=== PATIENT | female | born 1995 | race Hispanic/Latino ===

== ENCOUNTER 2016-04-25 15:12 | Emergency (ER) | payer OTHER ==
[~2016-04-25] VITALS: Ht 170.2 cm; Wt 81.8 kg
[2016-04-25 15:17] VITALS: BP 152/68; PULSE 107; RESP 18; O2SAT 100
--- NOTE | 2016-04-25 16:28 | ED.REPORT ---
HPI-Psychiatric Illness Date of Service Apr 25, 2016 ED Provider: Akira Grewal MD Pt is a 20 year old female presenting to the ED accompanied by her friend complaining of suicidal ideation. Pt states that she has been going through a lot of stuff in the past few months, and she has been trying to control her emotions and not react, but now it has negatively affected her. She reports that today, she kept fidgeting, like she couldn't control herself, felt like she couldn't think clearly, felt like her heart was going to "pop out of her chest", was getting uncharacteristically angry, and didn't want to be around people, and insomnia, only getting about 3 hours of sleep per night. She reports a mild history of depression symptoms, and states that she shut herself in her room this past weekend. She does admit to suicidal ideation, but does not have a plan. Nursing Notes Stated Complaint: DEPRESSED Chief Complaint: Psychiatric Complaint Nursing Notes Reviewed: Yes (Postling, CSIDs not reconciled) Allergies: Uncoded Allergies: PENICILLIN (Allergy, Unknown, 04/25/16) General Time Seen by MD: 16:26 Chief Complaint Depressed, Suicidal ideation Hx Obtained From: Patient Arrived By: Walk-in Onset Occurred: Onset unknown Symptom Duration: Since onset Progression Since Onset: Constant Severity: Current: No pain currently Severity: Maximum: No pain Recent Healthcare: No recent doctor visit, No recent hospitalization Similar Sx Previous: No Risk-Psychiatric Illness Suicide Risk Stratification Suicide Risk Factors - Adult: No: Alcohol use, Close associate suicide, Family Hx of Suicide, Previous attempt, Prior psych admission, Substance abuse RF Statements: Risk factors reviewed (not predictive) Past Medical History Past Medical History healthy Past Surgical History denies Smoking History Never Smoker Social History Alcohol Use: Denies alcohol use Ambulatory Status Independent Review of Systems Psychiatric: Reports: Depression, Insomnia, Suicidal ideation, Unable to control self Complete sys rev & neg: except as marked. Physical Exam Initial Vital Signs Vital Signs (First) Date Time Temp Pulse Resp B/P Pulse Ox O2 Delivery O2 Flow Rate FiO2 04/25/16 15:17 36.3 107 18 152/68 100 Room Air Initial VS: Reviewed, Vital signs abnormal Head / Eyes: Atraumatic, Normocephalic, PERRL ENT: Mucous membranes moist, Conjunctiva normal, No scleral icterus Respiratory: Breath sounds normal, Clear to auscultation, No respiratory distress Cardiovascular: Regular rate & rhythm, Heart sounds normal, Intact distal pulses Abdomen / GI: Soft, Non-tender, No guarding, No rebound, No distention Extremities: Vascular intact, Neuro intact, No swelling, No tenderness Skin: Warm, Dry, No cyanosis General/Constitutional: Awake, Alert, Well appearing Neurologic: Oriented X3, Speech NL, No motor deficits, No sensory deficits, Memory NL Psychiatric: Affect NL, Mood NL, Judgment/insight NL Abnormal Thinking / Perception: Positive: Suicidal, no plan Suicidal ideation intermittent, not currently suicidal at present. No clinical signs of intoxication or withdrawal. Interpretation & Diagnostics Lab Results Interpretation Result Diagram: 04/25/16 1640 04/25/16 1640 Test 04/25/16 15:40 04/25/16 16:40 Hold Urine Received (Received) White Blood Count 9.0th/mm3 (3.8-10.1) Red Blood Count 4.67mil/mm3 (3.90-5.20) Hemoglobin 14.1g/dL (12.0-15.6) Hematocrit 41.3% (35.0-46.0) Mean Corpuscular Volume 88.4fL (81-100) Mean Corpuscular Hemoglobin 30.2pg (27.0-35.0) Mean Corpuscular Hemoglobin Concent 34.1% (32.0-37.0) Red Cell Distribution Width 12.3% (12.3-15.4) Platelet Count 259bil/L (150-400) Neutrophils (%) (Auto) 78.1% (40-74) Lymphocytes (%) (Auto) 14.3% (14-46) Monocytes (%) (Auto) 6.1% (4-12) Eosinophils (%) (Auto) 1.0% (0-5) Basophils (%) (Auto) 0.3% (0-3) Sodium Level 137mEq/L (134-144) Potassium Level 4.0mEq/L (3.5-5.2) Chloride Level 99mEq/L (97-108) Carbon Dioxide Level 25mmol/L (18-29) Blood Urea Nitrogen 10mg/dL (6-20) Creatinine 0.61mg/dL (0.57-1.00) Estimat Glomerular Filtration Rate 181mL/min (>59) Glucose Level 99mg/dL (60-99) Calcium Level 8.8mg/dL (8.5-10.1) Total Bilirubin 0.2mg/dL (0.0-1.2) Aspartate Amino Transf (AST/SGOT) 21U/L (0-50) Alanine Aminotransferase (ALT/SGPT) 23U/L (0-32) Alkaline Phosphatase 66U/L (25-150) Total Protein 7.1g/dL (6.4-8.4) Albumin 4.1g/dL (3.4-5.0) Thyroid Stimulating Hormone (TSH) 1.800uIU/mL (0.450-4.500) Hold De Oliveira Top Tube Received (Received) Lab Results Interpretation: negative U tox negative Urine dip negative CBC normal CMP normal TSH normal Alcohol negative Re-Eval/Medical Decision Med Decision/Clinical Course This is a 20-year-old female presents complaining of some depression following multiple acute stressors in recent months, and a statement of some suicidal ideation. She admits to being increasingly depressed, under lots of stress, and that recently she cannot block herself and withdraw oxygen wanted talk anyone and neck pupils attention. Her mother was questioning her and she admitted to some suicidal ideation-she states she has never had a plan, reports only fleeting thoughts, and overall wrist presents with low risk. That was referred in for further evaluation. She has no prior history of major depression, no prior suicide attempts. no Previous hospitalizations, no counselor, and she denies drug use. The patient's, cooperative. She describes mild depression, but seems to have intact insight and judgment. She has no signs of clinical toxicity, intoxication, or withdrawal. She has no historical or exam findings of an acute medical issue. Screening labs were requested and were performed and were negative. The patient was seen by [facility] TECHNICIAN. The patient is being set up for counseling and resource referral, but is discharged in good condition. There are No findings the patient is in imminent danger, or that she requires involuntary hospitalization. Patient is discharged in stable condition Source of Hx: Old records Re-Evaluation/Progress : Time of Eval: 16:26 Patient Status: Condition improved Re-Evaluation/Progress Note: Discussed plan for labs and social work consult. Pt understands and agrees. Differential Diagnosis: Positive: Depression, Negative: Alcohol abuse, Homicidal, Polysubstance abuse, Substance abuse Counseled Regarding: Diagnosis, Lab results, Need for follow-up, When/why to return to ED Discharge & Departure Impression: Primary Impression: Depression Depression Type: unspecified Qualified Code: F32.9 - Major depressive disorder, single episode, unspecified Additional Impressions: Acute situational disturbance Suicidal ideation )( Condition at Discharge: No danger to self, No danger to others Disposition: Home Discharge Condition All VS Reviewed: Yes Condition: Improved Referrals: NOPCP (PCP) Care Transferred to: Dr. Canas Care Transferred at: 18:15 Simone Attestation Portions of this note were transcribed by Yuliana Nelson. I, Dr. Grewal personally performed the history, physical exam and medical decision-making; I reviewed and confirmed the accuracy of the information in the transcribed note. Signed by: Simone Vasquez, 04/25/2016 at 1800. Akira Grewal MD Apr 25, 2016 16:28 YULIANA NELSON Apr 25, 2016 17:11
[2016-04-25 16:56] LABS: BASOPHILS % (AUTO) 0.3 % (0-3); MONOCYTES % (AUTO) 6.1 % (4-12); Mean Corpuscular Hemoglobin 30.2 pg (27.0-35.0); Mean Corpuscular Volume 88.4 fL (81-100); NEUTROPHILS % (AUTO) 78.1 % (40-74); Platelet Count 259 bil/L (150-400)
[2016-04-25 19:00] VITALS: BP 118/77; PULSE 94; RESP 18; O2SAT 98
== END 2016-04-25 19:10 | disposition home or self-care (01) ==
LOC: EDBD 15:12 → MERGE 15:12 → SED 15:12
DX: F32.9 Major depressive disorder, single episode, unspecified (principal); F43.0 Acute stress reaction; R45.851 Suicidal ideations